=== PATIENT | female | born 1950 | race Caucasian/White ===

== ENCOUNTER 2023-07-21 08:36 | Outpatient (RCR) | payer OTHER, SELFPAY | END 2023-07-21 23:59 | disposition home or self-care (01) | LOC: ROT 08:36 | PROVIDERS: ATTENDING PHYSICIAN Psychiatry & Neurology Neurology; FAMILY PHYSICIAN Family Medicine | DX: G91.2 (Idiopathic) normal pressure hydrocephalus (principal) | CPT/HCPCS: 97163; 97166 ==

== ENCOUNTER → 2023-10-12 08:47 | Outpatient (REF) | payer OTHER, SELFPAY | LOC: RCS 08:47 | PROVIDERS: ATTENDING PHYSICIAN Internal Medicine; FAMILY PHYSICIAN Family Medicine | DX: Z01.818 Encounter for other preprocedural examination (principal) | CPT/HCPCS: 93005 ==

== ENCOUNTER → 2023-12-26 16:12 | Outpatient (REF) | payer OTHER, SELFPAY | LOC: RAD 16:12 | PROVIDERS: ATTENDING PHYSICIAN Neurological Surgery; FAMILY PHYSICIAN Family Medicine | DX: Z98.2 Presence of cerebrospinal fluid drainage device (principal) | CPT/HCPCS: 74176 ==

== ENCOUNTER 2024-02-14 06:29 | Outpatient (RCR) | payer OTHER, SELFPAY | END 2024-02-14 23:59 | disposition home or self-care (01) | LOC: ROT 06:29 | PROVIDERS: ATTENDING PHYSICIAN Family Medicine | DX: G91.2 (Idiopathic) normal pressure hydrocephalus (principal); Z98.2 Presence of cerebrospinal fluid drainage device; R41.841 Cognitive communication deficit; R47.02 Dysphasia; Z73.6 Limitation of activities due to disability | CPT/HCPCS: 97167 ==

== ENCOUNTER 2024-03-14 10:23 | Outpatient (RCR) | payer OTHER, SELFPAY | END 2024-03-14 23:59 | disposition home or self-care (01) | LOC: RPT 10:23 | PROVIDERS: ATTENDING PHYSICIAN Family Medicine | DX: G91.2 (Idiopathic) normal pressure hydrocephalus (principal); Z98.2 Presence of cerebrospinal fluid drainage device; R41.841 Cognitive communication deficit; R47.02 Dysphasia | CPT/HCPCS: 92507; 97110; 97112; 97163; 97530; 97535 ==

== ENCOUNTER 2024-04-11 09:41 | Outpatient (RCR) | payer OTHER, SELFPAY | END 2024-04-11 23:59 | disposition home or self-care (01) | LOC: RPT 09:41 | PROVIDERS: ATTENDING PHYSICIAN Family Medicine | DX: G91.2 (Idiopathic) normal pressure hydrocephalus (principal); Z98.2 Presence of cerebrospinal fluid drainage device; R41.841 Cognitive communication deficit; R47.02 Dysphasia; Z73.6 Limitation of activities due to disability | CPT/HCPCS: 92507; 97110; 97112; 97530; 97535 ==

== ENCOUNTER → 2024-04-18 14:22 | Outpatient (REF) | payer OTHER, SELFPAY | LOC: RAD 14:22 | PROVIDERS: ATTENDING PHYSICIAN Nurse Practitioner Adult Health; FAMILY PHYSICIAN Family Medicine | DX: G91.2 (Idiopathic) normal pressure hydrocephalus (principal) | CPT/HCPCS: 70250 ==

== ENCOUNTER 2024-11-24 03:25 | Inpatient (IN) | payer OTHER, SELFPAY ==
[2024-11-23 20:22] VITALS: BP 111/100
[2024-11-23 20:42] LABS: % Basophils 0.2 % (0-2); % Eosinophils 0.2 % (0-6); % Immature Granulocytes 0.5 % (0-0.5); % Lymphocytes 5.7 % (20.5-51.1); % Monocytes 6.5 % (1.7-9.3); % Neutrophils 86.9 % (42.2-75.2); Absolute Basophils 0.1 10^3/uL (0-0.2); Absolute Eosinophils 0.1 10^3/uL (0-0.7); Absolute Immature Granulocytes 0.1 10^3/uL (0-0.05); Absolute Lymphocytes 1.3 10^3/uL (1.2-3.4); Absolute Monocytes 1.4 10^3/uL (0.1-0.6); Absolute Neutrophils 19.2 10^3/uL (1.4-6.5); Hematocrit 35.8 % (37.0-47.0); Hemoglobin 11.9 g/dL (12.0-16.0); Mean Corp Hgb Conc. 33.2 g/dL (33.0-37.0); Mean Corpuscular Hgb 29.8 pg (27.0-31.0); Mean Corpuscular Volume 89.7 fL (81.0-99.0); Mean Platelet Volume 10.2 fL (7.4-10.4); Nucleated Red Blood Cells % 0 %; Platelet Count 317 10^3/uL (130-400); Red Blood Cell Count 3.99 10^6/uL (4.20-5.40); Red Cell Dist. Width 12.4 % (11.5-14.5); White Blood Cell Count 22.1 10^3/uL (4.8-10.8)
[2024-11-23 20:52] LABS: Lactic Acid 1.8 mmol/L (0.7-2.0)
[2024-11-23 20:59] LABS: Blood Urea Nitrogen 20 mg/dl (7-17); Calcium 9.3 mg/dl (8.4-10.2); Carbon Dioxide 24 mmol/L (22-30); Chloride 104 mmol/L (98-107); Glucose 253 mg/dl (70-99); Sodium 138 mmol/L (135-145); eGFR > 60.00
[2024-11-23 21:56] LABS: Urine Albumin 3+ (Neg - Trace); Urine Bilirubin Negative (Negative); Urine Character Clear (Clear); Urine Color Yellow; Urine Glucose 1+ (Negative); Urine Ketone 3+ (Negative); Urine Leukocyte Negative (Negative); Urine Nitrite Negative (Negative); Urine Occult Blood Negative (Negative); Urine Urobilinogen Negative (Neg - 1+)
[2024-11-23 22:08] LABS: Urine Bacteria Moderate (Negative); Urine Mucus Moderate; Urine Red Blood Cell 0-2 /HPF (0-2)
--- NOTE | 2024-11-23 23:35 | ED.GENMED ---
History of Present Illness
General
Chief Complaint: Change in Mental Status
Source: patient
Time Seen by Provider: 11/23/24 20:43
History of Present Illness
History of Present Illness:
This is 74-year-old female with history of diabetes and normal pressure hydrocephalus who presents after her daughter noticed that she was not herself. Patient reportedly was normal this morning and the patient's daughter states she came downstairs
the figure out something to eat and noticed there was vomit on the floor and vomit on her. Daughter states that the patient seemed confused. She was given her directions but she was not really following them well. She does have a history of
dementia. She also notes that her gait seemed off but that is not atypical for her. No obvious sick contacts. She has had this deep cough and coughing up green sputum as per the daughter. Patient does have a history of dementia and states she
has been coughing. Daughter also states that when she was getting her cleaned up she noticed a tick on her.
Past History
Past History
ED Past Medical History: Asthma, NIDDM and Other (Dementia, normal pressure hydrocephalus)
ED Past Surgical History: Other (HR MANAGER shunt)
Social History
Tobacco: Non-smoker
Alcohol: Occasional
Drug: None
Personal:
Living: with family
Employment: Employed
Phy Exam
Physical Exam
Physical Exam:
CONSTITUTIONAL Patient alert and oriented to person, place. Well-appearing. Vital signs reviewed.
HEAD atraumatic, normocephalic.
EYES eyelids normal to inspection, Extraocular muscles intact, Conjunctiva normal, Sclera normal.
NECK normal range of motion, Trachea midline, no jugular venous distention. No meningeal findings
RESPIRATORY CHEST No respiratory distress noted, Chest expansion equal, scattered rhonchi
CARDIOVASCULAR regular rate and rhythm, Heart sounds normal.
ABDOMEN abdomen nontender, Bowel sounds normal. No distention.
BACK normal inspection, no obvious deformities
UPPER EXTREMITY range of motion normal, Motor strength normal, no cyanosis, no edema.
LOWER EXTREMITY range of motion normal, Motor strength normal, no cyanosis, no edema.
NEURO Speech normal, No focal motor deficits, Cranial Nerves intact to screening exam.
SKIN skin warm, dry, and normal in color.
Course
Orders/Labs/Results
Orders:
Orders
11/23/24 20:27
Electrocardiogram (*1) Urgent
Reason for Study: Other
Other Reason for Exam: Possible Sepsis
Cardiac Monitoring- Treatment ONCE
EKG- Treatment ONCE
IV Insert/Care/Rem.- Treatment PRN
Straight cath- Treatment ONCE
O2 Therapy [RESP] Urgent
Titrate/Wean O2 to maintain O2 sat greater than (%): 93
Special Instructions: TO MAINTAIN CONTINUOUS O2 SATS > OR = 93%
Pulse Ox/cont/shift [RESP] Urgent
Quantity: 1
Special Instructions: CONTINUOUS
11/23/24 20:28
Basic Metabolic Panel Urgent
Complete Blood Count/With Diff Urgent
Urinalysis Reflex To Culture Urgent
Date Specimen was Collected: 11/23/24
Time Specimen was Collected: 20:27
Urine Microscopic Reflex Cult Urgent
Urine Culture Urgent
MARIAM Source: U
Specimen Description:
Date Specimen was Collected: 11/23/24
Time Specimen was Collected: 20:27
11/23/24 20:29
Chest [CR Chest - 2 Views ] Urgent
Comment:
Reason For Exam: cough
11/23/24 20:30
Lactic Acid Q4H
Comment: ON ICE, CANCEL 2ND ORDER IF FIRST LACTIC ACID LEVEL <2
Blood Culture Q20M
MARIAM Source: Blood/Venous
Specimen Description:
Comment: Urgent from separate sites. If patient screens positive for possible sepsis
Blood Culture Q20M
MARIAM Source: Blood/Venous
Specimen Description:
Comment: Urgent from separate sites. If patient screens positive for possible sepsis
11/23/24 21:39
Straight cath- Treatment ONCE
11/23/24 22:09
Add On- LAB Urgent
Tests Added?: LYME PROGRESSIVE
11/23/24 22:10
CT Head W/o Iv Contrast Urgent
Comment:
Reason For Exam: CHANGE IN MS
11/23/24 23:34
Vital Signs- Treatment ONCE
Frequency: Once
0.9% Sodium Chloride 500 ml [Nss] 500 ml IV BOLUS
11/23/24 23:41
Azithromycin 500 mg/250 ml [Zithromax Infusion] 500 mg in 250 ml IV NOW
CefTRIAXone [Rocephin] 2,000 mg IV NOW STA
11/24/24 00:30
Lactic Acid Q4H
Comment: ON ICE, CANCEL 2ND ORDER IF FIRST LACTIC ACID LEVEL <2
Abnormal Lab Results
11/23/24
20:28
WBC 22.1 H 10^3/uL
(4.8-10.8)
RBC 3.99 L 10^6/uL
(4.20-5.40)
Hgb 11.9 L g/dL
(12.0-16.0)
Hct 35.8 L %
(37.0-47.0)
Abs Immat Gran (auto) 0.1 H 10^3/uL
(0-0.05)
Absolute Neuts (auto) 19.2 H 10^3/uL
(1.4-6.5)
Absolute Monos (auto) 1.4 H 10^3/uL
(0.1-0.6)
Neutrophils % 86.9 H %
(42.2-75.2)
Lymphocytes % 5.7 L %
(20.5-51.1)
BUN 20 H mg/dl
(7-17)
Glucose 253 H mg/dl
(70-99)
Urine Ketones 3+ A
(Negative)
Urine Bacteria (Reflex) Moderate A
(Negative)
Urine Glucose 1+ A
(Negative)
Urine Albumin (Reflex) 3+ A
(Neg - Trace)
11/23/24 20:28
11/23/24 20:28
Vital Signs
Initial and Last Documented VS:
Initial Vital Signs
Temp Pulse Resp BP Pulse Ox
97.8 F 106 15 111/100 93
11/23/24 20:22 11/23/24 20:22 11/23/24 20:22 11/23/24 20:22 11/23/24 20:22
Last Documented Vital Signs
Temp Pulse Resp BP Pulse Ox
97.8 F 106 22 111/100 93
11/23/24 20:22 11/23/24 22:30 11/23/24 22:30 11/23/24 20:22 11/23/24 20:22
MDM/Problems Addressed
Differential Diagnosis Includes:
Pneumonia, bronchitis, UTI, meningitis, CVA, TIA, shunt malfunction
MDM/Problems Addressed:
Cough, leukocytosis, vomiting, change in mental status
*Radiology
Radiology exam reviewed: preliminary read by ED provider (No hemorrhage) and radiology read reviewed
*Pulse Oximetry
Patient hypoxic: no
*Corporate Director Interpretation
Rate: normal
Interpretation: normal
Rhythm: sinus
*Critical Care Note
Total Time (30-74mins, 75-104mins- exclusive of procedures): Not Applicable
Data Reviewed
Source: patient
Further Testing Considered But Not Given:
Considered LP but no meningismus.
Patient Management
Discussion with other providers: Hospitalist
Escalation/DeEscalation of care consider admission/obs:
Patient presents after change in mental status. Daughter states she does seem better now. Found to have leukocytosis but could be related to vomiting and marginalization. no obvious pneumonia but productive cough. Will cover with a dose of
antibiotics. Question whether this could be an enteritis versus pulmonary infection. No gross UTI. Cultures sent.
ED Attending Note
-
Portions of this chart may have been created with voice recognition software.� Occasional wrong word or��sound alike� substitutions may have occurred due to the inherent limitations of voice recognition software.
Discharge Plan
Departure
Patient Disposition: Admit
Date of Disposition: 11/23/24
Time of Disposition: 23:40
Admit to: Telemetry
Presentation/result/management discussed w/ accepting MD/DO: Hospitalist
Discharge Problem:
Acute alteration in mental status, Leukocytosis, Bronchitis
Prescriptions:
No Action
atorvastatin 20 MG tablet
40 mg PO DAILY
levothyroxine 125 MCG tablet
112 mcg PO DAILY@0700
montelukast 10 MG tablet
10 mg PO DAILY
albuterol sulfate 1 PUFF HFA aerosol inhaler
2 puff inhalation R Q4HPRN PRN (Reason: SOB)
Januvia 100 MG tablet
100 mg PO DAILY
fluticasone propionate 1 SPRAY spray,suspension
2 spray intranasal PRN PRN (Reason: allergies)
cyanocobalamin (vitamin B-12) 2,500 MCG tablet
1,000 mcg PO DAILY
Aspir-81
81 mg PO DAILY
Referrals:
Nolvia Owens MD [Family Provider] -
Interventions
Interventions:
*Risk Screen - Suicide Last Done: 11/23/24 20:22
*General Assessment Last Done: 11/23/24 20:22
*Neglect/Abuse Screening Last Done: 11/23/24 20:22
ED- Neurological Assessment Last Done: 11/23/24 20:30
ED- Cardiac Assessment Last Done: 11/23/24 20:30
ED Swallowing Screen Last Done: 11/23/24 20:30
Discharge Date and Time
Print Language: ZIMBABWEAN
[2024-11-23 23:41] VITALS: BP 139/60
[2024-11-23] MEDS: NSS 500 IV (23:51)
[2024-11-23] MEDS: ROCEPHIN 2000 MG IV (23:53)
[2024-11-24] MEDS: ZITHROMAX INFUSION 250 IV ×2 (00:03→23:09)
--- NOTE | 2024-11-24 00:12 | HPS.HSE ---
Family Physician
-
Family Physician: Nolvia Owens
Chief Complaint
-
Altered mental status
History of Present Illness
This is a 74-year-old female with past medical history significant for mild asthma, normal pressure hydrocephalus status post STORE LEAD shunt, diabetes, hypothyroid coming into the emergency department with episode of altered mental status and vomiting.
Daughter who is the primary caregiver reports that at baseline patient is confused secondary to the hydrocephalus. She apparently was in usual state of health except for about 3 weeks of productive cough. She reports cough that is productive of
brown sputum but no fevers or chills and no shortness of breath. This was started following a presumed viral illness in the family with most members having been fully recovered since.
Patient apparently was in that state of health up until after dinner today. She was sitting down when she was found by daughter having vomited. Patient unable to tell me the circumstances of the vomiting. She only says she was holding her head to
make himself comfortable. After vomiting she was sitting there with the vomitus on the shed in apparent on awareness of the episode. She responded appropriately when called but she was otherwise not coherent. She also had some difficulty walking.
After being cleaned up by daughter with a lot of effort patient vomited a second time. This was nonbloody and nonbilious. She did not complain of any abdominal pain and has not had any abdominal bloating. She has not had any diarrhea.
Patient had a STORE LEAD shunt placed about a year ago. In April of last year she had a shunt adjustment to fall which resulted in ataxia. This was then reversed back to the 5 and since then she has improvement in her ambulation. She has no rash. She
otherwise has no urinary symptoms.
In the emergency department patient was afebrile, blood pressure 139/60 with a pulse of 102 satting 94% on room air. Tmax was 99.4.
Leukocytosis to 22.1, hemoglobin and platelets are normal. Uric acid was normal. UA was equivocal with moderate bacteria but otherwise negative. Electrolytes with all within the normal range BUN/creatinine were normal. Glucose was slightly
elevated at 253.
CT of the head showed right frontal approach STORE LEAD shunt with tip terminating near the foramen of Finney. No priors for comparison. No evidence of intracranial hemorrhage, mass effect, midline shift or extra-axial fluid collection. She has air-fluid
level with mucosal thickening in the right maxillary sinus which can be seen with acute chronic sinusitis.
Medical History
Past Medical History
Past Medical History: Reports Asthma, Hypercholesterolemia, Hypothyroidism, NIDDM and Other
Additional Past Medical History:
Normal pressure hydrocephalus
Past Surgical History: Reports Gynocological (Hysterectomy) and Other (STORE LEAD shunt placement)
Social History
Tobacco: Non-smoker
Alcohol: None
Drug: None
Personal: Single
Living: With Family
Employment: Disabled
Family History
Family History: Not pertinent
Allergies / Home Medications
Allergies reflects when Allergies were last updated in [facility].
Home Medications with original date entered in [facility]
Allergy/Medication List:
Allergies
Allergy/AdvReac Type Severity Reaction Status Date / Time
Shellfish *RETIRED-04/03/12 Allergy Hives, Verified 05/31/18 07:59
[Shellfish] Vomiting,
Throat
Swelling
eggs Allergy Hives, Uncoded 05/31/18 07:59
Vomiting,
Throat
Swelling
Home Medications
albuterol sulfate 90 mcg/actuation aerosol inhaler 2 puff inhalation R Q4HPRN PRN SOB 02/21/18
atorvastatin 20 mg tablet 40 mg PO DAILY 02/21/18
cyanocobalamin (vitamin B-12) 2,500 mcg tablet 1,000 mcg PO DAILY 02/21/18
fluticasone propionate 50 mcg/actuation nasal spray,suspension 2 spray intranasal PRN PRN allergies 02/21/18
levothyroxine 125 mcg tablet 112 mcg PO DAILY@0700 02/21/18
montelukast 10 mg tablet 10 mg PO DAILY 02/21/18
sitagliptin phosphate 100 mg tablet (Januvia) 100 mg PO DAILY 02/21/18
Aspir-81 81 mg PO DAILY 07/25/23
Review of Systems
-
History Source: Family
Constitutional: Reports No Symptoms
EENT: Reports No Symptoms
Respiratory: Reports Cough
Cardiac: Reports No Symptoms
Abdomen/GI: Reports Vomiting
: Reports No Symptoms
Musculoskeletal: Reports No Symptoms
Skin: Reports No Symptoms
Neurological: Reports No Symptoms
Endocrine: Reports No Symptoms
Hematologic/Lymphatic: Reports No Symptoms
Physical Exam
Vital Signs
Vital Signs
Temp Pulse Resp BP Pulse Ox
97.8 F 106 22 111/100 93
11/23/24 20:22 11/23/24 22:30 11/23/24 22:30 11/23/24 20:22 11/23/24 20:22
Physical Exam
General: Well Developed, Well Nourished and Comfortable
HEENT: NormoCephalic, Anicteric, Moist mucous membranes and Atraumatic
Respiratory: Clear
Cardiac: S1/S2 and Regular Rhythm
Breast: Deferred by me
GI: Soft, Non Tender, Non Distended and Normal Bowel Sounds
Rectal: Deferred by Provider
Genito-urinary: Clear Urine
Musculoskeletal: No Clubbing, No Cyanosis and No Edema
Skin: Warm
Neuro: AO x 3 and Nonfocal/grossly intact
Hematologic/Lymphatic: No Lymphadenopathy
Psych: Calm
Laboratory Results
-
11/23/24 20:28
11/23/24 20:28
Laboratory Results
Lactic Acid 1.8 mmol/L (0.7-2.0) 11/23/24 20:30
Total Bilirubin Cancelled 11/23/24 20:28
AST Cancelled 11/23/24 20:28
ALT Cancelled 11/23/24 20:28
Alkaline Phosphatase Cancelled 11/23/24 20:28
Data Reviewed
-
Diagnostic Radiology: Image Personally Visualized and interpreted
CT Scan: Report Reviewed by me
Lab Data: Labs Reviewed by me
Old Records: Reviewed
Impression/Plan
-
IMPRESSION:
74-year-old with history of normal pressure hydrocephalus status post STORE LEAD shunt, hypothyroid, hyperlipidemia, [id number] diabetes and mild intermittent asthma who presents to the emergency department with episode of vomiting and confusion.
She vomited x 2 that was nonbloody nonbilious and that was confused and disoriented according to family anyway that is worse than her baseline. She appears to have been improving since arrival in the emergency department. She is afebrile
hemodynamically stable and in no acute distress. However she is found to have leukocytosis. Started investigative workup. No obvious source of infection. The CT scan however is consistent with sinusitis likely resulting in PND and bronchitis.
Does not appear to have change in the STORE LEAD shunt but will need imaging to compare. No mass effect midline shift or extra-axial fluid collection. She has a productive cough likely secondary to postnasal drip but cannot rule out a pneumonia. No
meningeal signs.
PLAN:
1. AMS - Toxic metabolic encephalopathy from infectious source (sinusitis/uti/pna) vs shunt malfunction. She is current stable without focal deficits and afebrile. At baseline she is A&O x 2 but is otherwise coherent. Currently A&Ox2 but
intermittently incoherent. No focal deficits.
- admit to med/surg
- agree with ceftriaxone/azithromycin to cover the possible sources.
- obtain previous imaging from [facility] in am to eval shunt placement.
- consider shunt study
- if remains altered, would get IR for LP and neurology consultation
- anti emetics with reglan prn
2. DM II
- continue sitagliptin
- sliding scale insulin
- continue statin
3. Leukocytosis -
- blood cultures
- abx emprically for now to cover sinus and pneumonia, unlikely uti based on u/a
4. Hypothyroid
- continue levothyroxine
DVT PPX - lovenox sq
Code status - full code
[2024-11-24 01:19] VITALS: BP 134/58
[2024-11-24 04:52] VITALS: BP 108/53
[2024-11-24 05:11] LABS: Hemoglobin 10.3 g/dL (12.0-16.0); Mean Corp Hgb Conc. 33.2 g/dL (33.0-37.0); Mean Corpuscular Hgb 29.9 pg (27.0-31.0); Mean Corpuscular Volume 90.1 fL (81.0-99.0); Mean Platelet Volume 9.9 fL (7.4-10.4); Platelet Count 264 10^3/uL (130-400); Red Blood Cell Count 3.44 10^6/uL (4.20-5.40); Red Cell Dist. Width 12.4 % (11.5-14.5); White Blood Cell Count 21.6 10^3/uL (4.8-10.8)
[2024-11-24 05:30] LABS: Blood Urea Nitrogen 16 mg/dl (7-17); Calcium 8.8 mg/dl (8.4-10.2); Carbon Dioxide 26 mmol/L (22-30); Chloride 106 mmol/L (98-107); Glucose 173 mg/dl (70-99); HDL Cholesterol 59 mg/dl; LDL Cholesterol, Calculated 49 mg/dl; Magnesium 1.8 mg/dl (1.6-2.3); Potassium 4.1 mmol/L (3.5-5.1); Sodium 141 mmol/L (135-145); Total Cholesterol 115 mg/dl (50-199); Triglyceride 39 mg/dl (10-149); Very Low Density Lipoprotein 7 mg/dl (0-30); eGFR > 60.00
[2024-11-24] MEDS: SYNTHROID 112 MCG PO (05:48)
[2024-11-24] MEDS: TYLENOL 650 MG PO (05:48)
[2024-11-24 06:01] LABS: TSH 0.11 uIU/ml (0.47-4.68)
[2024-11-24 07:05] LABS: Vitamin B12 977 pg/ml (239-931)
[2024-11-24] MEDS: JANUVIA 100 MG PO (08:13)
[2024-11-24] MEDS: SINGULAIR 10 MG PO (08:13)
[2024-11-24] MEDS: LIPITOR 40 MG PO (08:13)
[2024-11-24] MEDS: ASPIR LOW (ENTERIC COATED) 81 MG PO (08:13)
[2024-11-24 08:19] VITALS: BP 90/49
[2024-11-24 08:27] LABS: Glucose - Point of Care 142 mg/dl (70-99)
[2024-11-24] MEDS: NSS 1000 IV ×2 (08:36→23:10)
[2024-11-24] MEDS: NOVOLOG FLEXPEN-LOW RESISTANCE SC (09:14)
--- NOTE | 2024-11-24 09:20 | CON.NEURO ---
Consultation
Order
Date of Consultation: 11/24/24
Requesting Provider: Lisandro Samuels MD
Reason for Consult: Encephalopathy
Neurology Consultation Note.
HPI: This is a 74-year-old woman who presented to [facility] on November 18, 2024 with worsening of emesis and encephalopathy.
The patient is unable to provide a history
ER VS: 111/100�90/49, Tmax�37.9 C.
EKG: Sinus tachycardia at 109, QTc Int : 498 ms
PDMP: none
Labs: Glucose�253, normal sodium, WBCs�22.1, hemoglobin�10.9, vitamin B12�977, TSH�0.11, free T4�pending, UA�positive for bacteria, glucose, ketones.
CT head wo contrast, suspected acute sinusitis, moderate to severe atrophy.
CXR-focus of patchy parenchymal opacity involving the medial left lower lobe.
The patient was started on ceftriaxone and azithromycin.
PMH: NPH, dementia, COPD,HTN, DLP,h/o uterovaginal prolapse, hypothyroidism
PSH: WELCOME WAGON HOST/HOSTESS shunt(12/07), STALIN/culposuspension
SH: Non-smoker,
FH: Not contributory to current presentation
All: Iodine
ROS: Positive for cough, negative for shortness of breath headache, change in vision, chest pain, abdominal pain
General: Well developed. In no acute distress.
Cardio: Regular rate and rhythm without murmur. Extremities are without cyanosis or edema.
Neuro:
Mental Status: Alert, oriented to name. Did not know her age, date of , season or year. Follows simple requests. Increased processing no hemineglect
Cranial Nerves: Pupils are equally round and reactive to light. EOMs full. Blink to threat bilaterally. No ptosis. No nystagmus. Face symmetric. Normal hearing AU. The palate elevated well. SCMs and traps 5/5. Tongue midline. No
dysarthria.
Motor: No pronator or leg drift
Reflexes: No grasp
Sensory: Limited due to poor attention
Coordination: No tremors myoclonic movement
Gait: deferred
Assessment and Plan:
I. Multifactorial encephalopathy (metabolic, infectious, vascular)
II. History of NPH status post remote WELCOME WAGON HOST/HOSTESS shunt
III. LLL atelectasis versus pneumonia
IV. Acute right maxillary sinus
- Fall precautions
- Brain MRI with and without franco given acute sinus
- Will follow
I personally reviewed all radiology and labs along with past medical records pertinent to current medical problems. Total time spent in patient care is 60 minutes.
Thank you for allowing us to participate in the care of this patient. We will continue to follow. Please do not hesitate to contact us with any questions or concerns.
Subjective/Objective
Subjective Data
Date of Service: November 24, 2024
Objective Data
Vital Signs
Temp Pulse Resp BP Pulse Ox
37.0 C 99 23 90/49 59
11/24/24 08:20 11/24/24 08:19 11/24/24 08:19 11/24/24 08:19 11/24/24 08:19
Lab Results
11/24/24 04:55
11/24/24 04:55
Sodium 141 mmol/L (135-145) 11/24/24 04:55
Potassium 4.1 mmol/L (3.5-5.1) 11/24/24 04:55
BUN 16 mg/dl (7-17) 11/24/24 04:55
Glucose 173 mg/dl (70-99) H 11/24/24 04:55
Calcium 8.8 mg/dl (8.4-10.2) 11/24/24 04:55
LDL Cholesterol, Calc 49 mg/dl 11/24/24 04:55
Vitamin B12 977 pg/ml (239-931) H 11/24/24 04:55
Patient Allergies
Shellfish *RETIRED-04/03/12 [Shellfish] Allergy (Verified 05/31/18 07:59)
Hives, Vomiting, Throat Swelling
eggs Allergy (Uncoded 05/31/18 07:59)
Hives, Vomiting, Throat Swelling
Medications
-
Active Medications
Generic Name Dose Route Start Last Admin
Trade Name Freq PRN Reason Stop Dose Admin
Acetaminophen 650 mg 11/24/24 04:40 11/24/24 05:48
Acetaminophen 325 Mg Tablet PO 12/22/24 04:39 650 mg
Q4HPRN PRN Administration
mild pain/CAVAZOS/temp> 100.4F
Albuterol 2 puff 11/24/24 04:40
Albuterol Hfa [90 Mcg/Dose] Inhaler INH
R Q4HPRN PRN
SOB
Protocol
Aspirin 81 mg 11/24/24 08:00 11/24/24 08:13
Aspirin 81 Mg (Enteric Coated) Tablet PO 12/22/24 07:59 81 mg
DAILY TOMI Administration
Atorvastatin Calcium 40 mg 11/24/24 08:00 11/24/24 08:13
Atorvastatin (Lipitor) 40 Mg Tablet PO 12/22/24 07:59 40 mg
DAILY TOMI Administration
Bisacodyl 10 mg 11/24/24 04:40
Bisacodyl 10 Mg Rectal Suppository RECTAL 12/22/24 04:39
[id number] PRN
constipation
Ceftriaxone Sodium 1,000 mg 11/25/24 00:00
Ceftriaxone 1000 Mg / 10 Ml Vial IV
Q24H TOMI
Dextrose 12.5 grams 11/24/24 06:00
Dextrose 50% (0.5 Grams/Ml) 50 Ml Syringe IV 12/22/24 05:59
[id number] PRN
hypoglycemia
Protocol
Enoxaparin Sodium 40 mg 11/24/24 18:00
Enoxaparin Sodium 40 Mg/0.4 Ml Syringe SC 12/22/24 17:59
QPM TOMI
Glucagon 1 mg 11/24/24 06:00
Glucagon 1 Mg Vial IM 12/22/24 05:59
PRN PRN
hypoglycemia - no IV access
Protocol
Azithromycin 500 mg in 250 mls @ 250 mls/hr 11/25/24 00:00
Zithromax Infusion IV
Q24H TOMI
Sodium Chloride 1,000 mls @ 75 mls/hr 11/24/24 08:30 11/24/24 08:36
Nss IV 1,000 mls
[id number] TOMI Administration
Insulin Aspart 0 units 11/24/24 07:30 11/24/24 09:14
Insulin Aspart Low Resistance 300 Units/3 Ml Pen.Injctr SC 12/22/24 07:29 Not Given
AC TOMI
Protocol
Levothyroxine Sodium 112 mcg 11/24/24 06:00 11/24/24 05:48
Levothyroxine 112 Mcg Tablet PO 12/22/24 05:59 112 mcg
DAILY @ 0600 TOMI Administration
Montelukast Sodium 10 mg 11/24/24 08:00 11/24/24 08:13
Montelukast Sodium 10 Mg Tablet PO 12/22/24 07:59 10 mg
DAILY TOMI Administration
Ondansetron HCl 4 mg 11/24/24 04:40
Ondansetron 4 Mg/2 Ml Vial IV 12/22/24 04:39
Q6HPRN PRN
nausea and vomiting
Polyethylene Glycol 17 grams 11/24/24 04:40
Polyethylene Glycol Powder 17 Grams Packet PO 12/22/24 04:39
DAILYPRN PRN
constipation
Senna/Docusate Sodium 1 tablet 11/24/24 04:40
Docusate W/Senna (Maria [place] Carmen-Colace) Tablet PO 12/22/24 04:39
BIDPRN PRN
constipation
Sitagliptin Phosphate 100 mg 11/24/24 08:00 11/24/24 08:13
Sitagliptin (Januvia) 100 Mg Tablet PO 12/22/24 07:59 100 mg
DAILY TOMI Administration
Sodium Chloride 0 flush 11/24/24 03:00
Sodium Chloride 0.9% (Flush) Syringe IV 12/22/24 02:59
PER PROTOCOL TOMI
Sterile Water 10 ml 11/25/24 00:00
Sterile Water For Injection 10 Ml Vial IV 12/23/24 00:00
Q24H TOMI
Home Medications
�Medication �Instructions �Recorded
albuterol sulfate 90 mcg/actuation 2 puff inhalation R Q4HPRN PRN SOB 02/21/18
aerosol inhaler
atorvastatin 20 mg tablet 40 mg PO DAILY 02/21/18
cyanocobalamin (vitamin B-12) 1,000 mcg PO DAILY 02/21/18
2,500 mcg tablet
fluticasone propionate 50 2 spray intranasal PRN PRN 02/21/18
mcg/actuation nasal allergies
spray,suspension
levothyroxine 125 mcg tablet 112 mcg PO DAILY@0700 02/21/18
montelukast 10 mg tablet 10 mg PO DAILY 02/21/18
sitagliptin phosphate 100 mg 100 mg PO DAILY 02/21/18
tablet (Januvia)
Aspir-81 81 mg PO DAILY 07/25/23
Vital Signs and Labs
-
Vital Signs and Labs:
Vital Signs
Temp Pulse Resp BP Pulse Ox
37.0 C 99 23 90/49 59
11/24/24 08:20 11/24/24 08:19 11/24/24 08:19 11/24/24 08:19 11/24/24 08:19
Lab Results
11/24/24 04:55
11/24/24 04:55
Sodium 141 mmol/L (135-145) 11/24/24 04:55
Potassium 4.1 mmol/L (3.5-5.1) 11/24/24 04:55
BUN 16 mg/dl (7-17) 11/24/24 04:55
Glucose 173 mg/dl (70-99) H 11/24/24 04:55
Calcium 8.8 mg/dl (8.4-10.2) 11/24/24 04:55
LDL Cholesterol, Calc 49 mg/dl 11/24/24 04:55
Vitamin B12 977 pg/ml (239-931) H 11/24/24 04:55
Medications
-
Medications:
Generic Name Dose Route Start Last Admin
Trade Name Freq PRN Reason Stop Dose Admin
Acetaminophen 650 mg 11/24/24 04:40 11/24/24 05:48
Acetaminophen 325 Mg Tablet PO 12/22/24 04:39 650 mg
Q4HPRN PRN Administration
mild pain/CAVAZOS/temp> 100.4F
Albuterol 2 puff 11/24/24 04:40
Albuterol Hfa [90 Mcg/Dose] Inhaler INH
R Q4HPRN PRN
SOB
Protocol
Aspirin 81 mg 11/24/24 08:00 11/24/24 08:13
Aspirin 81 Mg (Enteric Coated) Tablet PO 12/22/24 07:59 81 mg
DAILY TOMI Administration
Atorvastatin Calcium 40 mg 11/24/24 08:00 11/24/24 08:13
Atorvastatin (Lipitor) 40 Mg Tablet PO 12/22/24 07:59 40 mg
DAILY TOMI Administration
Bisacodyl 10 mg 11/24/24 04:40
Bisacodyl 10 Mg Rectal Suppository RECTAL 12/22/24 04:39
[id number] PRN
constipation
Ceftriaxone Sodium 1,000 mg 11/25/24 00:00
Ceftriaxone 1000 Mg / 10 Ml Vial IV
Q24H TOMI
Dextrose 12.5 grams 11/24/24 06:00
Dextrose 50% (0.5 Grams/Ml) 50 Ml Syringe IV 12/22/24 05:59
[id number] PRN
hypoglycemia
Protocol
Enoxaparin Sodium 40 mg 11/24/24 18:00
Enoxaparin Sodium 40 Mg/0.4 Ml Syringe SC 12/22/24 17:59
QPM TOMI
Glucagon 1 mg 11/24/24 06:00
Glucagon 1 Mg Vial IM 12/22/24 05:59
PRN PRN
hypoglycemia - no IV access
Protocol
Azithromycin 500 mg in 250 mls @ 250 mls/hr 11/25/24 00:00
Zithromax Infusion IV
Q24H TOMI
Sodium Chloride 1,000 mls @ 75 mls/hr 11/24/24 08:30 11/24/24 08:36
Nss IV 1,000 mls
[id number] TOMI Administration
Insulin Aspart 0 units 11/24/24 07:30 11/24/24 09:14
Insulin Aspart Low Resistance 300 Units/3 Ml Pen.Injctr SC 12/22/24 07:29 Not Given
AC TOMI
Protocol
Levothyroxine Sodium 112 mcg 11/24/24 06:00 11/24/24 05:48
Levothyroxine 112 Mcg Tablet PO 12/22/24 05:59 112 mcg
DAILY @ 0600 TOMI Administration
Montelukast Sodium 10 mg 11/24/24 08:00 11/24/24 08:13
Montelukast Sodium 10 Mg Tablet PO 12/22/24 07:59 10 mg
DAILY TOMI Administration
Ondansetron HCl 4 mg 11/24/24 04:40
Ondansetron 4 Mg/2 Ml Vial IV 12/22/24 04:39
Q6HPRN PRN
nausea and vomiting
Polyethylene Glycol 17 grams 11/24/24 04:40
Polyethylene Glycol Powder 17 Grams Packet PO 12/22/24 04:39
DAILYPRN PRN
constipation
Senna/Docusate Sodium 1 tablet 11/24/24 04:40
Docusate W/Senna ([place] Carmen-Colace) Tablet PO 12/22/24 04:39
BIDPRN PRN
constipation
Sitagliptin Phosphate 100 mg 11/24/24 08:00 11/24/24 08:13
Sitagliptin (Januvia) 100 Mg Tablet PO 12/22/24 07:59 100 mg
DAILY TOMI Administration
Sodium Chloride 0 flush 11/24/24 03:00
Sodium Chloride 0.9% (Flush) Syringe IV 12/22/24 02:59
PER PROTOCOL TOMI
Sterile Water 10 ml 11/25/24 00:00
Sterile Water For Injection 10 Ml Vial IV 12/23/24 00:00
Q24H TOMI
Home Medications
-
Home Medications
albuterol sulfate 90 mcg/actuation aerosol inhaler 2 puff inhalation R Q4HPRN PRN SOB 02/21/18
atorvastatin 20 mg tablet 40 mg PO DAILY 02/21/18
cyanocobalamin (vitamin B-12) 2,500 mcg tablet 1,000 mcg PO DAILY 02/21/18
fluticasone propionate 50 mcg/actuation nasal spray,suspension 2 spray intranasal PRN PRN allergies 02/21/18
levothyroxine 125 mcg tablet 112 mcg PO DAILY@0700 02/21/18
montelukast 10 mg tablet 10 mg PO DAILY 02/21/18
sitagliptin phosphate 100 mg tablet (Januvia) 100 mg PO DAILY 02/21/18
Aspir-81 81 mg PO DAILY 07/25/23
[2024-11-24 09:37] VITALS: BP 114/52
--- NOTE | 2024-11-24 11:29 | W.PN.HOSP.TC ---
Today's Communication/Plan
-
Continue antibiotics
Add nebulizer treatments
Mucinex
Assessment / Plan
Assessment / Plan
74-year-old female with mental status change
CT head-ELEMENTARY EDUCATION TEACHER shunt. No evidence of acute intracranial abnormality. air-fluid level within the right maxillary sinus suggesting possibly of acute sinusitis.
Chest x-ray subtle focus of patchy parenchymal opacity involving the medial left lower lobe differential includes atelectasis and/or pneumonia
Patient was pleasant awake and alert
Cardiovascular system S1-S2 appreciated
Chest -coarse breath sounds bilaterally
Abdomen soft and nontender
Neuroexam-patient has cognitive dysfunction as it appears/confusion
Enlarged head circumference
Cannot remember many things she states she gets mixed up
Good strength upper extremities and lower extremities
# Change in mental status/TME
Likely secondary to pneumonia/acute sinusitis/acute bronchitis
Continue ceftriaxone and Zithromax
Sputum cultures with possible
Patient is much better in terms of confusion
Discontinue one-to-one
# ELEMENTARY EDUCATION TEACHER Shunt Beginning 2023 per son he does not know the details-neurology evaluation appreciated
# Diabetes-continue sitagliptin 100 mg daily
# Asthma-continue montelukast, inhalers/nebulizer treatments
# Hypothyroidism-continue levothyroxine 112 mcg daily
# Hyperlipidemia-continue statin
# DVT prophylaxis-Lovenox
Discussed with nursing at bedside
Called patient's daughter-went to message
Discussed with neurology
Called patient's son who does not know all the medical details he will have us sister call me back
Medicines list need to be updated. Son aware to bring us accurate medications list.
time spent 35 min
Anticipated Discharge: 24 - 48 hours
Subjective/Interval History
-
Date of Service: November 24, 2024
Objective Data
-
Labs:
Laboratory Results
11/24/24
04:55
WBC 21.6 H
Hgb 10.3 L
Hct 31.0 L
Plt Count 264
Sodium 141
Potassium 4.1
Chloride 106
Carbon Dioxide 26
BUN 16
Creatinine 0.8
Glucose 173 H
Calcium 8.8
Vital Signs:
Vital Signs
Temp Pulse Resp BP Pulse Ox
98.6 F 87 17 114/52 91
11/24/24 08:20 11/24/24 10:00 11/24/24 10:00 11/24/24 09:37 11/24/24 10:00
[2024-11-24] MEDS: VENTOLIN NEBULES 2.5 MG INH ×3 (11:43→20:16)
[2024-11-24 12:03] LABS: Glycohemoglobin (HgbA1c) 7.5 % (4.0-5.6)
[2024-11-24] MEDS: MUCINEX 600 MG PO ×2 (12:29→21:32)
[2024-11-24 13:26] LABS: Glucose - Point of Care 180 mg/dl (70-99)
[2024-11-24] MEDS: NOVOLOG FLEXPEN-LOW RESISTANCE 1 UNITS SC ×2 (13:27→16:56)
[2024-11-24 16:08] VITALS: BP 134/58
[2024-11-24 16:51] LABS: Glucose - Point of Care 185 mg/dl (70-99)
[2024-11-24] MEDS: LOVENOX 40 MG SC (16:55)
[2024-11-24 20:55] LABS: Glucose - Point of Care 210 mg/dl (70-99)
[2024-11-24] MEDS: STERILE WATER FOR INJECTION 10 ML IV (23:07)
[2024-11-24] MEDS: ROCEPHIN 1000 MG IV (23:07)
[2024-11-24 23:15] VITALS: BP 116/59
[2024-11-25] MEDS: SYNTHROID 112 MCG PO (05:32)
[2024-11-25 07:00] VITALS: BP 132/64
[2024-11-25] MEDS: VENTOLIN NEBULES INH ×2 (07:14→07:33)
[2024-11-25 07:24] LABS: Glucose - Point of Care 135 mg/dl (70-99)
--- NOTE | 2024-11-25 07:48 | W.PN.HOSP.TC ---
Addendum entered and electronically signed by Torres Suárez MD 11/25/24 16:30:
I saw and evaluated the patient. I reviewed the resident�s note and agree with findings and plan as documented in the resident�s note.
1. Toxic metabolic encephalopathy -suspected infectious in nature from acute bronchitis/sinusitis. CT head did not show any acute abnormality. Clinically low concern of FOUNTAIN SUPERVISOR shunt dysfunction. Patient mentation better with empiric ceftriaxone and
azithromycin. COVID/flu check negative. TSH is low and will follow up on free T4/free T3 level
2. History of FOUNTAIN SUPERVISOR shunt -this was placed for concern of mentation change. CT head did not show any sign of vision dysfunction.
Original Note:
Today's Communication/Plan
-
.
Assessment / Plan
Assessment / Plan
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
Toxic metabolic encephalopathy
- likely secondary to pneumonia/acute sinusitis
- cont ceftriaxone, azithromycin
- blood cx: no growth at 24h
- sputum cx: pending
- CXR: atelectasis vs pneumonia
- CT head: no acute intracranial abnormalities
FOUNTAIN SUPERVISOR shunt beginning 2023
- not MRI compatible
DM
- cont home sitagliptin
Asthma
- cont montelukast, inhalers
Hypothyroidism
- cont levothyroxine
- tsh low, check free t4/t3
HLD
- cont statin
Diet: diabetic
DVT ppx: lovenox
Code status: FULL CODE
Anticipated Discharge: Within 24 hours
Subjective/Interval History
-
Date of Service: November 25, 2024
No acute overnight events
Objective Data
-
Vital Signs:
Vital Signs
Temp Pulse Resp BP Pulse Ox
98.8 F 97 16 116/59 91
11/24/24 23:15 11/25/24 07:19 11/25/24 07:19 11/24/24 23:15 11/25/24 07:19
I&O
11/24/24 11/25/24 11/26/24
06:59 06:59 06:59
Intake Total 1480 / 1480
Balance 1480 / 1480
Review of Systems
-
History Source: Patient
Constitutional: Reports No Symptoms
EENT: Reports No Symptoms Reported
Respiratory: Reports No Symptoms
Cardiac: Reports No Symptoms
Abdomen/GI: Reports No Symptoms
Musculoskeletal: Reports No Symptoms
Skin: Reports No Symptoms
Neuro: Reports No Symptoms
Hematologic / Lymphatic: Reports No Symptoms
Physical Exam
-
General: Well Developed and Well Nourished
HEENT: Normocephalic and Atraumatic
Respiratory: Clear to Auscultation
Cardiac: Regular Rhythm and S1/S2
GI: Soft, Nontender, Nondistended and Normal Bowel Sounds
Musculoskeletal: No Clubbing, No Cyanosis and No Edema
Skin: Warm and Dry
Neuro: Awake and AO x 3
Psych: Calm
[2024-11-25 08:25] LABS: Hematocrit 29.8 % (37.0-47.0); Hemoglobin 9.8 g/dL (12.0-16.0); Mean Corp Hgb Conc. 32.9 g/dL (33.0-37.0); Mean Corpuscular Hgb 29.7 pg (27.0-31.0); Mean Corpuscular Volume 90.3 fL (81.0-99.0); Mean Platelet Volume 10.1 fL (7.4-10.4); Platelet Count 239 10^3/uL (130-400); Red Cell Dist. Width 12.6 % (11.5-14.5); White Blood Cell Count 12.3 10^3/uL (4.8-10.8)
[2024-11-25 09:18] LABS: Blood Urea Nitrogen 10 mg/dl (7-17); Calcium 8.6 mg/dl (8.4-10.2); Carbon Dioxide 22 mmol/L (22-30); Chloride 110 mmol/L (98-107); Glucose 145 mg/dl (70-99); Potassium 3.8 mmol/L (3.5-5.1); Sodium 140 mmol/L (135-145); eGFR > 60.00
[2024-11-25 10:21] VITALS: BP 129/56; PULSE 96; O2SAT 97
[2024-11-25] MEDS: NOVOLOG FLEXPEN-LOW RESISTANCE SC (10:26)
[2024-11-25] MEDS: ASPIR LOW (ENTERIC COATED) 81 MG PO (10:27)
[2024-11-25] MEDS: SINGULAIR 10 MG PO (10:27)
[2024-11-25] MEDS: JANUVIA 100 MG PO (10:27)
[2024-11-25] MEDS: MUCINEX 600 MG PO ×2 (10:29→20:29)
[2024-11-25] MEDS: LIPITOR 40 MG PO (10:29)
[2024-11-25] MEDS: VENTOLIN NEBULES 2.5 MG INH ×3 (11:35→19:58)
[2024-11-25 12:00] LABS: Glucose - Point of Care 228 mg/dl (70-99)
[2024-11-25] MEDS: NSS 1000 IV (12:24)
[2024-11-25] MEDS: NOVOLOG FLEXPEN-LOW RESISTANCE 2 UNITS SC (12:26)
[2024-11-25 13:07] LABS: COVID-19 Antigen Negative (Negative)
[2024-11-25 13:52] LABS: Lyme Antibody Screen, EIA Negative (Negative)
[2024-11-25 15:58] VITALS: BP 114/75
[2024-11-25 16:44] LABS: Glucose - Point of Care 179 mg/dl (70-99)
--- NOTE | 2024-11-25 16:55 | CM ---
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
PCP: Nolvia Owens
Pharmacy: [facility] in [place].
Plan; Home when stable.
[2024-11-25] MEDS: NOVOLOG FLEXPEN-LOW RESISTANCE 1 UNITS SC (17:15)
[2024-11-25] MEDS: LOVENOX 40 MG SC (17:30)
[2024-11-25 20:53] LABS: Glucose - Point of Care 206 mg/dl (70-99)
[2024-11-26] MEDS: STERILE WATER FOR INJECTION 10 ML IV (00:07)
[2024-11-26] MEDS: ZITHROMAX INFUSION 250 IV (00:08)
[2024-11-26] MEDS: ROCEPHIN 1000 MG IV (00:08)
[2024-11-26] MEDS: ROBITUSSIN 100 MG PO (01:25)
[2024-11-26] MEDS: SYNTHROID 112 MCG PO (05:42)
[2024-11-26 07:30] LABS: Hematocrit 26.8 % (37.0-47.0); Mean Corp Hgb Conc. 33.6 g/dL (33.0-37.0); Mean Corpuscular Hgb 30.1 pg (27.0-31.0); Mean Corpuscular Volume 89.6 fL (81.0-99.0); Platelet Count 244 10^3/uL (130-400); Red Blood Cell Count 2.99 10^6/uL (4.20-5.40); Red Cell Dist. Width 12.4 % (11.5-14.5)
[2024-11-26 07:33] VITALS: BP 116/66
[2024-11-26 07:59] LABS: Blood Urea Nitrogen 8 mg/dl (7-17); Calcium 8.4 mg/dl (8.4-10.2); Carbon Dioxide 23 mmol/L (22-30); Chloride 114 mmol/L (98-107); Glucose 147 mg/dl (70-99); Sodium 141 mmol/L (135-145); eGFR > 60.00
[2024-11-26] MEDS: VENTOLIN NEBULES 2.5 MG INH ×2 (08:02→15:19)
--- NOTE | 2024-11-26 08:06 | W.PN.HOSP.TC ---
Today's Communication/Plan
-
dc today
Assessment / Plan
Assessment / Plan
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
Toxic metabolic encephalopathy
- likely secondary to pneumonia/acute sinusitis
- cont ceftriaxone, azithromycin
- blood cx: no growth at 24h
- sputum cx: pending
- CXR: atelectasis vs pneumonia
- CT head: no acute intracranial abnormalities
TYPING OFFICE WORKER shunt beginning 2023
- not MRI compatible
DM
- cont home sitagliptin
Asthma
- cont montelukast, inhalers
Hypothyroidism
- cont levothyroxine
- tsh low, free t4/t3 wnl
HLD
- cont statin
Diet: diabetic
DVT ppx: lovenox
Code status: FULL CODE
Anticipated Discharge: Today
Subjective/Interval History
-
Date of Service: November 26, 2024
No acute overnight events
Objective Data
-
Labs:
Laboratory Results
11/26/24
07:14
WBC 12.0 H
Hgb 9.0 L
Hct 26.8 L
Plt Count 244
Sodium 141
Potassium 4.0
Chloride 114 H
Carbon Dioxide 23
BUN 8
Creatinine 0.6
Glucose 147 H
Calcium 8.4
Vital Signs:
Vital Signs
Temp Pulse Resp BP Pulse Ox
100.0 F 104 20 116/66 94
11/26/24 07:33 11/26/24 07:33 11/26/24 07:33 11/26/24 07:33 11/26/24 07:33
I&O
11/25/24 11/26/24 11/27/24
06:59 06:59 06:59
Intake Total 1480 / 1480 250 / 250 1480 / 1480
Balance 1480 / 1480 250 / 250 1480 / 1480
Review of Systems
-
History Source: Patient
Constitutional: Reports No Symptoms
Respiratory: Reports No Symptoms
Cardiac: Reports No Symptoms
Abdomen/GI: Reports No Symptoms
Musculoskeletal: Reports No Symptoms
Skin: Reports No Symptoms
Neuro: Reports No Symptoms
Physical Exam
-
General: Well Developed and Well Nourished
HEENT: Normocephalic, Atraumatic and Moist Mucous Membranes
Respiratory: Clear to Auscultation and Non Labored Respirations
Cardiac: Regular Rhythm and S1/S2
GI: Soft, Nontender, Nondistended and Normal Bowel Sounds
Musculoskeletal: No Clubbing, No Cyanosis and No Edema
Neuro: Awake and AO x 3
Psych: Calm
[2024-11-26 08:18] LABS: Free T3 2.55 pg/ml (2.77-5.27)
[2024-11-26 08:32] LABS: TSH Reflex To Free T4 0.29 uIU/ml (0.47-4.68)
[2024-11-26 08:47] LABS: Glucose - Point of Care 169 mg/dl (70-99)
[2024-11-26] MEDS: NOVOLOG FLEXPEN-LOW RESISTANCE 1 UNITS SC (08:50)
[2024-11-26] MEDS: LIPITOR 40 MG PO (08:51)
[2024-11-26] MEDS: JANUVIA 100 MG PO (08:51)
[2024-11-26] MEDS: ASPIR LOW (ENTERIC COATED) 81 MG PO (08:51)
[2024-11-26] MEDS: MUCINEX 600 MG PO (08:51)
[2024-11-26] MEDS: SINGULAIR 10 MG PO (08:52)
[2024-11-26 09:02] LABS: Free T4 2.25 ng/dl (0.78-2.19)
[2024-11-26] MEDS: VENTOLIN NEBULES INH ×2 (11:11→11:14)
[2024-11-26 11:38] LABS: Glucose - Point of Care 220 mg/dl (70-99)
[2024-11-26] MEDS: NOVOLOG FLEXPEN-LOW RESISTANCE 2 UNITS SC (12:34)
--- NOTE | 2024-11-26 13:12 | W.DCSUMMARY ---
Discharge Summary
Discharge Data
Date of Admission: 11/24/24
Date of Discharge: 11/26/24
-
Pending Results: No
Hospital Course
Discharging Physician : Dr. Andie Gooden, Dr. Torres Suárez
Disposition : home
Primary care physician : Nolvia Owens
Principal Discharge diagnosis : Toxic metabolic encephalopathy
Chronic Discharge diagnosis : Normal pressure hydrocephalus, RUBBER GOODS REPAIRER shunt, DM, asthma, hypothyroidism, HLD
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 Found to have sinusitis on head CT. Treated with ceftriaxone and azithromycin. Pt's encephalopathy improved and
eventually resolved. Received a total of 5 days of abx. Pt hemodynamically stable and afebrile throughout admission
Important imaging findings :
CXR 11/23: Subtle focus of patchy parenchymal opacity involving the medial left lower lobe. Main differential considerations of atelectasis and/or pneumonia. No evidence for associated pleural effusion.
Head CT 11/23: Ventriculoperitoneal shunt is present. No evidence of acute intracranial abnormality. Meniscal air-fluid level within the right maxillary sinus, suggesting the possibility of acute sinusitis and please correlate clinically.
Procedure findings : n/a
Discharge Plan
-
Patient Disposition: Home (Routine Discharge)
Discharge Diagnosis/Procedures: Toxic Metabolic Encephalopathy, Hypothyroidism
Condition: Good
Diet: Diabetic, Carb Controlled
Activity: No restrictions
Driving Restrictions: As prior to admission
Bathing Restrictions: OK to Shower
Activity Restrictions/Additional Instructions:
Please follow up with your primary care provider in 1 week. Please follow up with your doctor about your thyroid levels.
Instructions: Toxic-metabolic encephalopathy
Referrals:
Nolvia Owens MD [Family Provider] - in one week
Prescriptions:
Continued
atorvastatin 20 MG tablet
40 mg PO QPM
levothyroxine 125 MCG tablet
112 mcg PO DAILY@0700
montelukast 10 MG tablet
10 mg PO DAILY
albuterol sulfate 1 PUFF HFA aerosol inhaler
2 puff inhalation R Q4HPRN PRN (Reason: SOB)
Januvia 100 MG tablet
100 mg PO DAILY
cyanocobalamin (vitamin B-12) 2,500 MCG tablet
500 mcg PO DAILY
Ozempic 1 mg/dose (4 mg/3 mL) Pen Injector
1 mg SC QWEEK
Rx Instructions:
SUNDAYS
Gemtesa 75 mg Tablet
75 mg PO DAILY
aspirin 81 mg Tablet
81 mg PO DAILY
Discharge Orders:
Discharge Patient (As Directed); Ordered 11/26/24
Ordered By: Andie Gooden
Discharge Date and Time
Print Language: ICELANDIC
[2024-11-26 15:42] VITALS: BP 149/63
--- NOTE | 2024-11-26 16:05 | CM ---
Home today, no needs.
Plan; Home
[2024-11-26] MEDS: LOVENOX SC (17:17)
== END 2024-11-26 17:34 | disposition home or self-care (01) | DRG 91 ==
LOC: 4 WEST ACU 03:25
PROVIDERS: ADMITTING PHYSICIAN Internal Medicine; ATTENDING PHYSICIAN Hospitalist; CONSULT PHYSICIAN Psychiatry & Neurology Neurology; EMERGENCY PHYSICIAN Emergency Medicine; FAMILY PHYSICIAN Internal Medicine
DX: G92.8 Other toxic encephalopathy (principal); J18.9 Pneumonia, unspecified organism; G91.2 (Idiopathic) normal pressure hydrocephalus; J98.11 Atelectasis; J01.00 Acute maxillary sinusitis, unspecified; J20.9 Acute bronchitis, unspecified; N32.81 Overactive bladder; I10 Essential (primary) hypertension; E78.00 Pure hypercholesterolemia, unspecified; E11.9 Type 2 diabetes mellitus without complications; F03.90 Unspecified dementia, unspecified severity, without behavioral disturbance, psychotic disturbance, mood disturbance, and anxiety; E03.9 Hypothyroidism, unspecified; R26.2 Difficulty in walking, not elsewhere classified; J45.20 Mild intermittent asthma, uncomplicated; D72.829 Elevated white blood cell count, unspecified; Z98.2 Presence of cerebrospinal fluid drainage device; Z79.890 Hormone replacement therapy; Z79.51 Long term (current) use of inhaled steroids; Z91.012 Allergy to eggs; Z91.013 Allergy to seafood; Z11.52 Encounter for screening for COVID-19; Z90.710 Acquired absence of both cervix and uterus
CPT/HCPCS: 51701; 70450; 71046; 80048; 80061; 81003; 81015; 82607; 82962; 83036; 83605; 83735; 84439; 84443; 84481; 85025; 85027; 86618; 87040; 87070; 87077; 87086; 87205; 87449; 87502; 87811; 87899; 93005; 94640; 94760; 96361; 96365; 96375; 97162; 99285

== ENCOUNTER 2025-06-16 09:55 | Emergency (ER) | payer OTHER, SELFPAY ==
[2025-06-16 09:59] VITALS: BP 124/85
[2025-06-16 10:19] VITALS: BMI 28.9
--- NOTE | 2025-06-16 10:28 | ED.GENMED ---
History of Present Illness
General
Chief Complaint: Allergic Reaction
Source: patient and family
Exam Limitations: none
Time Seen by Provider: 06/16/25 10:05
History of Present Illness
History of Present Illness:
75yoF with a history of dementia, type 2 diabetes, and hypothyroidism presenting with her daughter for evaluation of lip swelling. Daughter reports that there is a camera in the patient's room and daughter reviewed the footage from this morning.
No swelling was noted when she woke up this morning. Daughter went into the room to check on her about an hour later and noticed that her bottom lip was swollen. Daughter called the PCP and was told to bring her to the ED for evaluation. In the
car, daughter started to notice some swelling in the upper lip as well. She is otherwise asymptomatic and denies any rash, dysphagia, shortness of breath, vomiting, diarrhea. No new products or medications.
Past History
Past History
ED Past Medical History: Asthma, NIDDM and Other (Dementia, normal pressure hydrocephalus)
ED Past Surgical History: Other (SAND MILLER shunt)
Social History
Tobacco: Non-smoker
Alcohol: Occasional
Drug: None
Personal:
Living: with family
Employment: Employed
Phy Exam
General Physical Exam
General Presentation: well appearing and no apparent distress
General Skin: warm and dry
General Habitus: normal
General Mental: alert
ENT Exam
ENT Exam: normocephalic and other (Mild swelling noted to upper and lower lips. No swelling of tongue or posterior oropharynx. Normal phonation. Tolerating oral secretions without difficulty. )
Additional ENT: Poor dentition. No visualized periapical abscess.
Eye Exam
Eye Exam: conjunctiva normal
Pulmonary Exam
Pulmonary Exam: lungs clear, no respiratory distress, no rales, no crackles, no rhonchi and no wheezing
Neurological Exam
Neurological Exam: alert
Skin Exam
Skin Exam: normal color, warm/dry and no rash
Psychiatric Exam
Psychiatric Exam: normal mood/affect
Course
Orders/Labs/Results
Orders:
Orders
06/16/25 10:35
Prednisone [Deltasone] 40 mg PO NOW STA
Vital Signs
Initial and Last Documented VS:
Initial Vital Signs
Pulse Resp BP Pulse Ox
88 18 124/85 97
06/16/25 09:59 06/16/25 09:59 06/16/25 09:59 06/16/25 09:59
Last Documented Vital Signs
Temp Pulse Resp BP Pulse Ox
98 F 86 16 122/76 98
06/16/25 10:54 06/16/25 10:54 06/16/25 10:54 06/16/25 10:54 06/16/25 10:54
MDM/Problems Addressed
Differential Diagnosis Includes:
75yoF here with lip swelling that began this AM. Mild swelling noted on exam. No tongue or posterior oropharyngeal swelling noted. Exam otherwise reassuring. No visualized rash and lungs CTA. VSS. Differential diagnosis includes: angioedema,
allergic reaction, no clinical evidence of lip/dental abscess
Unclear etiology of swelling. Family denies any new products. She does not take any TREVOR inhibitors or ARBs. ED pharmacist reviewed patient's medication list and Januvia can cause angioedema via generation of bradykinin. Daughter advised to discuss
this with patient's PCP to see if a medication switch is needed. Patient started on a course of prednisone and advised to take Zyrtec daily. ED return precautions reviewed. Daughter in agreement with plan and patient was discharged in stable
condition.
*Pulse Oximetry
SaO2: 97
Oxygen Mode of Delivery: Room air
Patient hypoxic: no
*Critical Care Note
Total Time (30-74mins, 75-104mins- exclusive of procedures): Not Applicable
ED Attending Note
-
Portions of this chart may have been created with voice recognition software.� Occasional wrong word or��sound alike� substitutions may have occurred due to the inherent limitations of voice recognition software.
Discharge Plan
Departure
Patient Disposition: Home (Routine Discharge)
Date of Disposition: 06/16/25
Time of Disposition: 10:49
Patient with high blood pressure during this ER visit?: No
Discharge Problem:
Swelling of both lips
Instructions: Angioedema
Prescriptions:
New
prednisone 20 mg tablet
40 mg PO DAILY 4 Days Qty: 8 0RF
No Action
atorvastatin 20 MG tablet
40 mg PO QPM
levothyroxine 125 MCG tablet
112 mcg PO DAILY@0700
montelukast 10 MG tablet
10 mg PO DAILY
albuterol sulfate 1 PUFF HFA aerosol inhaler
2 puff inhalation R [id number] PRN (Reason: SOB)
Januvia 100 MG tablet
100 mg PO DAILY
cyanocobalamin (vitamin B-12) 2,500 MCG tablet
500 mcg PO DAILY
Ozempic 1 mg/dose (4 mg/3 mL) Pen Injector
1 mg SC QWEEK
Rx Instructions:
SUNDAYS
Gemtesa 75 mg Tablet
75 mg PO DAILY
aspirin 81 mg Tablet
81 mg PO DAILY
Referrals:
UNKNOWN - PT DOES,NOT KNOW [Family Provider]
Activity Restrictions/Additional Instructions:
Take prednisone as prescribed. Your blood sugar will be higher while taking the prednisone. You should also start taking Zyrtec daily.
Januvia can cause angioedema. Please follow-up with your family doctor and discuss this further.
Return to the ER with any new or worsening symptoms including trouble breathing or swallowing
Interventions
Interventions:
*Risk Screen - Suicide Last Done: 06/16/25 09:59
*General Assessment Last Done: 06/16/25 09:59
*Neglect/Abuse Screening Last Done: 06/16/25 09:59
[facility] Risk Assessment Tool Last Done: 06/16/25 09:56
*Nursing Disposition Last Done: 06/16/25 11:04
ED- Cardiac Assessment Last Done: 06/16/25 10:23
ED- Neurological Assessment Last Done: 06/16/25 10:23
ED- Pulmonary Assessment Last Done: 06/16/25 10:23
ED-Skin Assessment Last Done: 06/16/25 10:23
Discharge Date and Time
Discharge Date/Time: 06/16/25 11:05
Print Language: SETSWANA
[2025-06-16] MEDS: DELTASONE 40 MG PO (10:50)
[2025-06-16 10:54] VITALS: BP 122/76
== END 2025-06-16 11:05 | disposition home or self-care (01) ==
LOC: EMR 09:55
PROVIDERS: EMERGENCY PHYSICIAN Student in an Organized Health Care Education/Training Program
DX: R22.0 Localized swelling, mass and lump, head (principal); E03.9 Hypothyroidism, unspecified; E11.9 Type 2 diabetes mellitus without complications; F03.90 Unspecified dementia, unspecified severity, without behavioral disturbance, psychotic disturbance, mood disturbance, and anxiety; J45.909 Unspecified asthma, uncomplicated; Z98.2 Presence of cerebrospinal fluid drainage device
CPT/HCPCS: 99283